=== PATIENT | female | born 1935 | race Caucasian/White ===

== ENCOUNTER 2019-05-20 06:29 | Emergency (ER) | payer MEDICARE, BC ==
[~2019-05-20] VITALS: Ht 152.4 cm; Wt 64.1 kg
--- NOTE | 2019-05-20 06:50 | NUR ---
Dr. Mobley at bedside.
[2019-05-20] MEDS ORDERED: TETanus/Pertussis (Acell)/Diphther VAC/PF (Tdap-Adult) 0.5ml syringe IM ONE (07:30)
[2019-05-20 07:50] VITALS: BP 127/48
== END 2019-05-20 07:52 | disposition home or self-care (01) ==
LOC: ER 06:30
DX: S51.811A Laceration without foreign body of right forearm, initial encounter (principal); S41.112A Laceration without foreign body of left upper arm, initial encounter; S81.811A Laceration without foreign body, right lower leg, initial encounter; L97.829 Non-pressure chronic ulcer of other part of left lower leg with unspecified severity; I10 Essential (primary) hypertension; J43.9 Emphysema, unspecified; M19.90 Unspecified osteoarthritis, unspecified site; Z98.890 Other specified postprocedural states; Z87.891 Personal history of nicotine dependence; W22.8XXA Striking against or struck by other objects, initial encounter; Y93.89 Activity, other specified; Y92.091 Bathroom in other non-institutional residence as the place of occurrence of the external cause; Y99.8 Other external cause status
CPT/HCPCS: 90471; 99284

== ENCOUNTER 2020-08-19 14:11 | Inpatient (IN) | payer MEDICARE ==
[2020-08-19] VITALS (8 sets, daily range): BP systolic 129–174; BP diastolic 55–78
[~2020-08-19] VITALS: Ht 149.9 cm; Wt 62.1 kg
[2020-08-19] MEDS ORDERED: LORazepam 0.5 MG tablet PO PRN (14:55)
[2020-08-19] MEDS ORDERED: diphenhydrAMINE 25mg capsule PO PRN (14:55)
[2020-08-19] MEDS ORDERED: MELA3TAB39 PO (16:12)
[2020-08-19] MEDS ORDERED: PRAV40TA3 PO (16:12)
[2020-08-19] MEDS ORDERED: LORA10CA PO (16:12)
[2020-08-19] MEDS ORDERED: POTA10TA19 PO (16:12)
[2020-08-19] MEDS ORDERED: CLOP75TA15 PO (16:12)
[2020-08-19] MEDS ORDERED: PRED5TAB PO (16:12)
[2020-08-19] MEDS ORDERED: VALS40TA2 PO (16:12)
[2020-08-19] MEDS ORDERED: AMIT-189 PO (16:12)
[2020-08-19] MEDS ORDERED: VERA120T9 PO (16:12)
[2020-08-19] MEDS ORDERED: HYDR-4383 PO (16:12)
[2020-08-19] MEDS ORDERED: ASPI81TA52 PO (16:12)
[2020-08-19] MEDS ORDERED: FURO-149 PO (16:12)
[2020-08-19] MEDS ORDERED: ALB0.5UD IH (16:12)
[2020-08-19] MEDS ORDERED: FAMO20TA8 PO (16:13)
[2020-08-19] MEDS ORDERED: MULT-381 PO (16:17)
[2020-08-19] MEDS ORDERED: CHOL10006 PO (16:17)
[2020-08-19] MEDS: normal saline 1,000 ML IV SCH (17:13)
[2020-08-19] MEDS ORDERED: phenylephrine 10mg/ml inj. ONE (18:35)
[2020-08-19] MEDS ORDERED: heparin 1,000unit/ml 10ml vial 10 ML ONE (18:36)
[2020-08-19] MEDS ORDERED: LIDOcaine 1% (10mg/ml)w/preservative injection 20ml MDV ONE (18:36)
[2020-08-19] MEDS ORDERED: iohexol 350 MG/ML 50ML vial IV ONE (18:36)
[2020-08-19] MEDS ORDERED: iohexol 350 MG/1 ML 200ml bottle ONE (18:36)
[2020-08-19] MEDS ORDERED: midazolam 2 mg/2 ml injection ONE (18:37)
[2020-08-19] MEDS ORDERED: atropine 0.1mg/ml 10ml syringe ONE (19:31)
[2020-08-19] MEDS ORDERED: DOPamine 400mg/D5W 250ml 250 ML IV ONE (19:31)
[2020-08-19] MEDS ORDERED: fentaNYL/PF 50MCG/1 ML 2ML syringe ONE (19:45)
--- NOTE | 2020-08-19 20:30 | NUR ---
patient arrived to floor. oriented to call light and precautions on right leg straight and not moving. helped to use phone to call family.
[2020-08-19] MEDS ORDERED: OXAZEpam 15mg capsule PO PRN (20:40)
[2020-08-19] MEDS ORDERED: HYDROcodone/acetaminophen 5mg/325mg tablet PO PRN (20:40)
[2020-08-19] MEDS ORDERED: HYDROcodone/acetaminophen 10/325mg tab PO PRN (20:40)
[2020-08-19] MEDS ORDERED: pseudoephedrine 30mg tablet PO PRN (20:40)
[2020-08-19] MEDS ORDERED: DOPamine 400mg/D5W 250ml 250 ML IV SCH (20:45)
[2020-08-19] MEDS ORDERED: normal saline 1000ml 1,000 ML IV SCH (20:45)
[2020-08-19] MEDS ORDERED: hydrALAZINE 20mg/ml inj. IV PRN (20:45)
[2020-08-19] MEDS ORDERED: albuterol 2.5 MG/3 ML nebule NEB PRN (20:50)
[2020-08-19] MEDS ORDERED: amitriptyline 25mg tablet PO SCH (21:00)
[2020-08-19] MEDS: Melatonin 3mg tablet PO SCH ×2 (21:00→21:58)
[2020-08-19] MEDS ORDERED: pravastatin 40mg tablet PO SCH (21:00)
--- NOTE | 2020-08-19 22:00 | NUR ---
noted hematoma under dressing. 10cm laterally and 5cm "tall". soft distally under dressing. small bruising noted just beneath laterally under the dressing. patient has pulmonary fibrosis and has frequent and productive coughs, forceful in nature. educated repeatedly to put pressure on site with cough - pt unable to do so. placed femstop on right groin with 60mmhg pressure in bulb. pulses and sensation intact. pt not very compliant with movement of leg. no bruising on lateral or medial leg noted.
--- NOTE | 2020-08-19 22:30 | NUR ---
Notified Dr. Caballero regarding hematoma to right groin. Informed him that femstop is in place. No new orders. Will continue to monitor.
[2020-08-20 00:15] VITALS: BP 153/58
[2020-08-20] MEDS: normal saline 1,000 ML IV SCH (00:55)
[2020-08-20 01:15] VITALS: BP 149/57
[2020-08-20] MEDS ORDERED: HYDROcodone/acetaminophen 5mg/325mg tablet PO SCH (02:00)
[2020-08-20 02:15] VITALS: BP 139/52
[2020-08-20] MEDS: HYDROcodone/acetaminophen 5mg/325mg tablet PO SCH ×2 (03:49→08:00)
--- NOTE | 2020-08-20 04:18 | NUR ---
bladder scan for 207ml. pt tried to void - no success. pt very sleepy. will attempt later. released femstop - no bleeding or hematoma noted
--- NOTE | 2020-08-20 06:35 | NUR ---
reported to days. noted femstop still holding, pulses intact.
[2020-08-20 07:00] VITALS: BP 149/49
[2020-08-20] MEDS ORDERED: verapamil SR 120mg (sust. release) tab PO SCH (08:00)
[2020-08-20] MEDS ORDERED: clopidogrel 75mg tablet PO SCH (08:00)
[2020-08-20] MEDS ORDERED: losartan 25mg tablet PO SCH (08:00)
[2020-08-20] MEDS ORDERED: potassium chloride 10mEq ER tablet PO SCH (08:00)
[2020-08-20] MEDS ORDERED: vitamin D (cholecalciferol) 1,000 unit tablet PO SCH (08:00)
[2020-08-20] MEDS ORDERED: loratadine 10mg tablet PO SCH (08:00)
[2020-08-20] MEDS ORDERED: multivitamins, therapeutics tablet PO SCH (08:00)
[2020-08-20] MEDS ORDERED: aspirin 81mg tablet.DR PO SCH (08:00)
[2020-08-20] MEDS ORDERED: prednisone 10mg tablet PO SCH (08:00)
[2020-08-20] MEDS ORDERED: famotidine 20mg tablet PO SCH (08:00)
[2020-08-20] MEDS ORDERED: furosemide 40mg tablet PO SCH (08:00)
[2020-08-20 09:07] LABS: BASOPHILS # (AUTO) 0.1 X10'3 (0-0.2); BASOPHILS % (AUTO) 0.4 % (0-1); EOSINOPHILS # (AUTO) 0.1 X10'3 (0-0.9); EOSINOPHILS % (AUTO) 0.8 % (0-6); HEMATOCRIT 31.8 % (35.0-45.0); HEMOGLOBIN 10.5 g/dl (12.0-16.0); LYMPHOCYTES # (AUTO) 1.3 X10'3 (1.1-4.8); LYMPHOCYTES % (AUTO) 9.7 % (21-51); MEAN CORPUSCULAR HEMOGLOBIN 28.5 PG (27.0-31.0); MEAN CORPUSCULAR HGB CONC 33.2 g/dL (33.0-36.5); MEAN PLATELET VOLUME 7.8 FL (7.4-10.4); MONOCYTES # (AUTO) 0.8 X10'3 (0-0.9); MONOCYTES % (AUTO) 6.1 % (2-12); NEUTROPHILS # (AUTO) 11.2 X10'3 (1.8-7.7); PLATELET COUNT 174 X10'3 (140-440); RED CELL DISTRIBUTION WIDTH 13.6 % (11.5-14.5); WHITE BLOOD COUNT 13.5 X10'3 (4.5-11.0)
[2020-08-20 10:00] VITALS: BP 152/54
[2020-08-20 10:06] LABS: ALANINE AMINOTRANSFERASE 7 U/L (12-78); ALBUMIN 2.5 G/DL (3.4-5.0); ALBUMIN/GLOBULIN RATIO 0.6 (1.1-1.5); ALKALINE PHOSPHATASE 46 IU/L (46-116); ANION GAP 2 (8-16); ASPARTATE AMINO TRANSFERASE 22 U/L (10-37); BILIRUBIN,TOTAL 0.4 MG/DL (0.1-1.0); BLOOD UREA NITROGEN 15 MG/DL (7-18); BUN/CREATININE RATIO 16.1 (6.6-38.0); CHLORIDE 106 MMOL/L (99-107); CHOL/HDL RATIO 2.1 (0.00-4.99); CHOLESTEROL 104 MG/DL (0-200); CREATININE 0.93 MG/DL (0.40-0.90); GLUCOSE 97 MG/DL (70-104); HDL CHOLESTEROL 49 MG/DL (35-60); LDL CHOLESTEROL 38 MG/DL (50-100); MAGNESIUM 1.8 MG/DL (1.5-2.4); POTASSIUM 4.1 MMOL/L (3.5-5.1); SODIUM 141 MMOL/L (135-145); TOTAL CARBON DIOXIDE 32.6 MMOL/L (24-32); TOTAL PROTEIN 6.8 G/DL (6.4-8.2); TRIGLYCERIDES 150 MG/DL (20-135); eGFR 58 ML/MIN
--- NOTE | 2020-08-20 11:00 | NUR ---
Patient walked down [address]osa with her own walker, gait belt and assistance and did well, 100 ft. No bleeding since last night and tolerating activity. Will ready for discharge with son to pick her up for return home.
[2020-08-20] MEDS ORDERED: amitriptyline 25mg tablet PO SCH (21:00)
--- NOTE | 2020-08-21 10:03 | NUR ---
CASE MANAGEMENT DISCHARGE FOLLOW UP: Spoke with pt via telephone. Pt reports that she is having some pain at site of angiogram, denies swelling, bleeding, discoloration. Pt sounds SOB over phone, states that she has pulmonary fibrosis and this is her baseline. Pt states that she has follow-up appointment with Dr Caballero at 1230 today as she has questions regarding aftercare, medication and current pain level as she did not receive this information at discharge. This nurse is unable to find discharge instructions in pt's electronic chart, paper chart currently unavailable. This nurse is not aware if pt was to receive medications at discharge or what Dr Caballero's discharge instructions are. Informed pt to keep appointment with Dr Caballero to clarify his instructions. Pt states that prior to admission she was followed by [facility] and she states that they have not been able to restart service as paperwork is required. Will follow up on ROS. Notified Fany, Director of Case Management, of situation regarding incomplete discharge process. [id number] Spoke with Kesha with Case Management, she will send ROS to [facility].
== END 2020-08-20 13:20 | disposition home health service (06) | DRG 36 ==
LOC: SSTAY O 14:11 → MED 3N 20:30
PROVIDERS: ADMIT Internal Medicine Interventional Cardiology; ATTEND Internal Medicine Interventional Cardiology
PROC: 037K3DZ Dilation of Right Internal Carotid Artery with Intraluminal Device, Percutaneous Approach (ICD-10-PCS; principal; 2020-08-19)
DX: I65.23 Occlusion and stenosis of bilateral carotid arteries (principal); I10 Essential (primary) hypertension; E78.00 Pure hypercholesterolemia, unspecified; Z88.2 Allergy status to sulfonamides; Z88.8 Allergy status to other drugs, medicaments and biological substances; Z93.2 Ileostomy status; Z85.3 Personal history of malignant neoplasm of breast
CPT/HCPCS: 36415; 37247; 80053; 80061; 83735; 85025; 87081; A4620; A6258; C1725; C1751; C1760; C1769; C1884; C1887; C1894; G0378; J0461; J1265; J1644; J2001; J2250; J2370; J3010; J7030; J7512; Q0163; Q9967

== ENCOUNTER → 2021-03-13 | Outpatient (CLI) | payer MEDICARE ==
[~2021-03-13] MED LIST: ALB0.5UD IH; AMIT-189 PO; ASPI81TA52 PO; CHOL10006 PO; FAMO20TA8 PO; FURO-149 PO; HYDR-4383 PO; LORA10CA PO; MELA3TAB39 PO; MULT-381 PO; NITR0.4T51 SL; POTA10TA19 PO; PRAV40TA3 PO; PRED5TAB PO; VALS160T30 PO; VERA120T9 PO
[2021-03-13 18:18] LABS: BASOPHILS % (AUTO) 0.1 % (0-1); EOSINOPHILS % (AUTO) 0 % (0-6); HEMATOCRIT 33.2 % (35.0-45.0); HEMOGLOBIN 11.1 g/dl (12.0-16.0); LYMPHOCYTES # (AUTO) 0.6 X10'3 (1.1-4.8); LYMPHOCYTES % (AUTO) 4.5 % (21-51); MEAN CORPUSCULAR HEMOGLOBIN 26.7 PG (27.0-31.0); MEAN CORPUSCULAR HGB CONC 33.5 g/dL (33.0-36.5); MEAN CORPUSCULAR VOLUME 79.6 FL (78-98); MEAN PLATELET VOLUME 8.4 FL (7.4-10.4); MONOCYTES # (AUTO) 0.6 X10'3 (0-0.9); NEUTROPHILS # (AUTO) 13.1 X10'3 (1.8-7.7); NEUTROPHILS % (AUTO) 91.4 % (42-75); PLATELET COUNT 232 X10'3 (140-440); RED BLOOD COUNT 4.17 X10'6 (4.20-5.60); RED CELL DISTRIBUTION WIDTH 15.2 % (11.5-14.5); WHITE BLOOD COUNT 14.4 X10'3 (4.5-11.0)
== END | disposition home or self-care (01) ==
LOC: LAB SPEC 17:40
PROVIDERS: ATTEND Internal Medicine Interventional Cardiology
DX: I10 Essential (primary) hypertension (principal)
CPT/HCPCS: 36415; 85025